=== PATIENT | male | born 1960 | race Caucasian/White ===

== ENCOUNTER 2020-04-10 08:40 | Day surgery (SDC) | payer BC ==
[2020-04-10 09:15] LABS: Absolute Lymphocytes (CBC) 2.1 K/uL (0.7-4.9); Basophils % 1.1 % (0-1.3); Hematocrit 47.1 % (39.6-49.0); Lymphocytes % 23.4 % (15.3-44.8); RBC Red Blood Cell Count 5.44 M/uL (4.33-5.43)
[2020-04-10 09:19] LABS: Protime INR 0.99
[2020-04-10] MEDS ORDERED: NA CHLORIDE 0.9% 1,000 ML ONE (09:22)
--- NOTE | 2020-04-10 09:27 | RAD REPORT ---
EXAM DESCRIPTION: RAD - Chest Single View - 04/10/2020 9:11 am CLINICAL HISTORY: CHEST PAIN Chest pain. COMPARISON: No comparisons FINDINGS: Portable technique limits examination quality. The lungs are mildly emphysematous but grossly clear. The heart is normal in size. No displaced fract ures. IMPRESSION: No acute intrathoracic process suspected.
[2020-04-10 09:42] LABS: Albumin 2.2 g/dL (3.4-5.0); Bilirubin Direct 0.2 mg/dL (0-0.2); Bilirubin Total 0.7 mg/dL (0.2-1.0); Magnesium 2.1 mg/dL (1.8-2.4); Potassium 4.1 mmol/L (3.5-5.1); Protein, Total 7.4 g/dL (6.4-8.2)
[2020-04-10 09:44] LABS: Troponin (Emerg Dept Use Only) 9.36 ng/mL (0.0-0.045)
[2020-04-10] MEDS ORDERED: NITROGLYCERIN 0.4 MG/TAB SL ONE (10:00)
--- NOTE | 2020-04-10 10:11 | ER ---
Nurse's Notes [facility] Name: Everton Steve Age: 59 yrs Sex: Male : 1960 Arrival Date: 04/10/2020 Time: 08:41 Bed 20 Private MD: Diagnosis: Non-ST elevation (NSTEMI) myocardial infarction Presentation: 04/10 08:51 Chief complaint: Intermittent substernal chest pain that radiates to left arm, SOB, and hb palpitations x 4 days. Reports HR 175 and pain this morning that was relieved by ASA and Nitro x 2. Coronavirus screen: At this time, the client does not indicate any symptoms associated with coronavirus-19. Ebola Screen: No symptoms or risks identified at this time. Initial Sepsis Screen: Does the patient meet any 2 criteria? No. Patient's initial sepsis screen is negative. Does the patient have a suspected source of infection? No. Patient's initial sepsis screen is negative. Risk Assessment: Do you want to hurt yourself or someone else? Patient reports no desire to harm self or others. Onset of symptoms was April 07, 2020. 08:51 Method Of Arrival: Ambulatory hb 08:51 Acuity: ANDRES 3 hb Historical: - Allergies: 08:57 No Known Allergies; hb - Home Meds: 08:57 Neurontin Oral [Active]; Novolog 100 unit/mL Sub-Q soln [Active]; unknown hypertension hb med [Active]; Aspirin Oral [Active]; nitroglycerin 0.4 mg SL subl [Active]; - PMHx: 08:57 Diabetes - IDDM; High Cholesterol; Hypertension; neuropathy; hb - PSHx: 08:57 Feet - Bilateral; Eyes - Bilateral; Tonsillectomy; hb - Immunization history:: Adult Immunizations up to date. - Social history:: Smoking status: Patient denies any tobacco usage or history of. Screenin:57 Abuse screen: Denies threats or abuse. Denies injuries from another. Nutritional hb screening: No deficits noted. Tuberculosis screening: No symptoms or risk factors identified. Fall Risk None identified. Assessment: 08:45 General: Appears in no apparent distress. uncomfortable, Behavior is calm, cooperative, jl7 appropriate for age. Pain: Complains of pain in mid-sternal area Pain radiates to left arm Pain currently is 5 out of 10 on a pain scale. at worst was 9 out of 10 on a pain scale. Pain began 2-3 days ago. Is intermittent. Neuro: Level of Consciousness is awake, alert, obeys commands, Oriented to person, place, time, situation. Cardiovascular: Reports chest pain, lightheadedness, shortness of breath, Heart tones S1 S2 present Patient's skin is warm and dry. Respiratory: Airway is patent Respiratory effort is even, unlabored, Respiratory pattern is regular, symmetrical, Breath sounds are clear bilaterally. GI: No signs and/or symptoms were reported involving the gastrointestinal system. : No signs and/or symptoms were reported regarding the genitourinary system. Derm: Skin is pink, warm \T\ dry. 10:00 Reassessment: Patient appears in no apparent distress at this time. No changes from jl7 previously documented assessment. Patient and/or family updated on plan of care and expected duration. Pain level reassessed. Patient is alert, oriented x 3, equal unlabored respirations, skin warm/dry/pink. Vital Signs: 08:51 BP 115 / 86; Pulse 76; Resp 16; Temp 97.1; Pulse Ox 98% on R/A; Weight 78.93 kg; Height hb 5 ft. 9 in. (175.26 cm); Pain 5/10; 09:19 BP 113 / 82; Pulse 78; Resp 15 S; Pulse Ox 100% on R/A; jl7 09:45 BP 130 / 69; Pulse 77; Resp 15; Pulse Ox 98% ; jl7 10:00 BP 101 / 70; Pulse 79; Resp 15; Pulse Ox 95% on R/A; jl7 10:15 BP 107 / 85; Pulse 91; Resp 16; Pulse Ox 96% ; jl7 08:51 Body Mass Index 25.70 (78.93 kg, 175.26 cm) hb ED Course: 08:41 Patient arrived in ED. ds1 08:42 Gordy Nunez PA is PHCP. cp 08:42 Nate Robertson MD is Attending Physician. cp 08:54 Triage completed. hb 08:57 Arm band placed on. hb 08:57 Patient has correct armband on for positive identification. Bed in low position. Call light in reach. monitor and storage bin tender on. Pulse ox on. NIBP on. 08:57 Patient maintains SpO2 saturation greater than 95% on room air. hb 09:00 Initial lab(s) drawn, by me, sent to lab. COVID-19 swab sent to lab. Inserted saline jl7 lock: 20 gauge in right wrist, using aseptic technique. Blood collected. 09:09 Ema Carbone, RN is Primary Nurse. jl7 09:10 XRAY Chest (1 view) In Process Unspecified. EDMS 09:46 Notified ED physician of a critical lab result(s). TROP 9.36. hb 10:10 Graham Robles is Hospitalizing Provider. cp 10:31 No provider procedures requiring assistance completed. Patient admitted, IV remains in jl7 place. intact, No redness/swelling at site. Administered Medications: 09:15 Drug: NS 0.9% 1000 ml Route: IV; Rate: 1000 ml/hr; Site: right wrist; jl7 10:30 Follow up: IV Status: Infusion continued upon admission jl7 10:02 Drug: Nitroglycerin 0.4 mg Route: Sublingual; jl7 10:30 Follow up: Response: No adverse reaction jl7 10:10 Drug: Heparin (ND-Bolus No thrombolytic) - HEParin 60 units/kg {Co-Signature: ll2 jl7 (Shaila Parks RN).} Route: IVP; Site: right wrist; 10:30 Follow up: Response: No adverse reaction jl7 10:12 Drug: Heparin (ND Drip) 12 units/kg/hr - (HEParin 97051 units, D5W 500 ml) jl7 {Co-Signature: ll2 (Shaila Parks RN).} Route: IV; Rate: calculated rate; Site: left forearm; 10:30 Follow up: Response: No adverse reaction; IV Status: Infusion continued upon admission jl7 10:30 Not Given (Patient Refused): morphine 2 mg IVP once; (PAIN>8) RASS on ADMN: Combtv4, jl7 Very Agttd3, Agttd2, Rstlss1, AlertClm0, Drwsy-1, LtSdtn-2, ModSdtn-3, DpSdtn-4, UnArsble-5 x2 Outcome: 10:10 Decision to Hospitalize by Provider. cp 10:31 Admitted to [facility] accompanied by nurse, via stretcher, on monitor, with chart, Other jl7 Report given to REY Dumont 10:31 Condition: stable 10:31 Discharge instructions given to patient, Instructed on the need for admit, Demonstrated understanding of instructions. 10:31 Patient left the ED. jl7 Signatures: Dispatcher [employer] EDMae Holliday ds1 Gordy Nunez PA PA cp Baxter, Heather, REY RN Ema Carpenter RN RN jl7 Shaila Parks RN ll2
--- NOTE | 2020-04-10 10:11 | EDPHYS ---
Physician Documentation [facility] Name: Everton Steve Age: 59 yrs Sex: Male : 1960 Arrival Date: 04/10/2020 Time: 08:41 Bed 20 Private MD: ED Physician Nate Robertson HPI: 04/10 09:00 This 59 yrs old Male presents to ER via Ambulatory with complaints of Chest cp Pain. 09:00 The patient or guardian reports chest pain that is located primarily in the substernal cp area. 09:00 Onset: 3 day(s) ago, and became worse last night, improved today. The pain radiates to cp the left arm. 09:00 The chest pain is described as aching, constant. Duration: The patient or guardian cp reports a single episode, that is still ongoing, but improving. Modifying factors: The symptoms are alleviated by ASA, 325mg X2. NTG, X1. Severity of pain: in the emergency department the pain is a 5 / 10. Historical: - Allergies: 08:57 No Known Allergies; hb - Home Meds: 08:57 Neurontin Oral [Active]; Novolog 100 unit/mL Sub-Q soln [Active]; unknown hypertension hb med [Active]; Aspirin Oral [Active]; nitroglycerin 0.4 mg SL subl [Active]; - PMHx: 08:57 Diabetes - IDDM; High Cholesterol; Hypertension; neuropathy; hb - PSHx: 08:57 Feet - Bilateral; Eyes - Bilateral; Tonsillectomy; hb - Immunization history:: Adult Immunizations up to date. - Social history:: Smoking status: Patient denies any tobacco usage or history of. ROS: 09:00 Constitutional: Negative for body aches, chills, fever, poor PO intake. cp 09:00 Eyes: Negative for injury, pain, redness, and discharge. cp 09:00 ENT: Negative for ear pain, sore throat, difficulty swallowing, difficulty handling secretions. 09:00 Cardiovascular: Positive for chest pain, palpitations, Negative for edema. 09:00 Respiratory: Negative for cough, shortness of breath, wheezing. 09:00 Abdomen/GI: Negative for abdominal pain, nausea, vomiting, and diarrhea. 09:00 Back: Negative for radiated pain. cp 09:00 Skin: Negative for rash. 09:00 Neuro: Positive for headache, Negative for altered mental status, numbness, syncope, weakness. 09:00 All other systems are negative. Exam: 09:00 ECG was reviewed by the Attending Physician. cp 09:00 Constitutional: The patient appears in no acute distress, alert, awake, cp non-diaphoretic, non-toxic, well developed, well nourished. 09:00 Head/Face: Normocephalic, atraumatic. cp 09:00 Eyes: Periorbital structures: appear normal, Conjunctiva: normal, no exudate, no injection, Sclera: no appreciated abnormality, Lids and lashes: appear normal, bilaterally. 09:00 ENT: External ear(s): are unremarkable, Nose: is normal, Mouth: Lips: moist, Oral mucosa: moist, Posterior pharynx: Airway: no evidence of obstruction, patent. 09:00 Neck: ROM/movement: is normal, is supple, without pain, no range of motions limitations. 09:00 Chest/axilla: Inspection: normal, Palpation: is normal, no crepitus, no tenderness. 09:00 Cardiovascular: Rate: normal, Rhythm: regular, Pulses: Pulses are 2+ in right radial artery and left radial artery. Edema: is not appreciated, JVD: is not appreciated. 09:00 Respiratory: the patient does not display signs of respiratory distress, Respirations: normal, no use of accessory muscles, no retractions, labored breathing, is not present, Breath sounds: are clear throughout, no decreased breath sounds, no stridor, no wheezing. 09:00 Abdomen/GI: Inspection: abdomen appears normal, Palpation: abdomen is soft and non-tender, in all quadrants. 09:00 Back: pain, is absent, ROM is normal. Vital Signs: 08:51 BP 115 / 86; Pulse 76; Resp 16; Temp 97.1; Pulse Ox 98% on R/A; Weight 78.93 kg; Height hb 5 ft. 9 in. (175.26 cm); Pain 5/10; 09:19 BP 113 / 82; Pulse 78; Resp 15 S; Pulse Ox 100% on R/A; jl7 09:45 BP 130 / 69; Pulse 77; Resp 15; Pulse Ox 98% ; jl7 10:00 BP 101 / 70; Pulse 79; Resp 15; Pulse Ox 95% on R/A; jl7 10:15 BP 107 / 85; Pulse 91; Resp 16; Pulse Ox 96% ; jl7 08:51 Body Mass Index 25.70 (78.93 kg, 175.26 cm) hb MDM: 08:53 Patient medically screened. cp 09:00 Differential diagnosis: abnormal EKG, acute myocardial infarction, pneumonia, cp pneumothorax, pulmonary embolus, stable angina, thoracic aortic disection, unstable angina. 10:00 Data reviewed: vital signs, nurses notes, lab test result(s), EKG, radiologic studies, cp plain films. 10:00 Test interpretation: by ED physician or midlevel provider: ECG. cp 10:05 The patient was not given aspirin in the Emergency Department. Patient reports taking cp aspirin within the past 24 hours. Physician consultation: Emre Monahan MD was contacted at 10:06, regarding consult, patient's condition, will take patient to cathode washer. 10:10 Physician consultation: Graham Robles was called at 10:10, was contacted at 10:10, cp regarding admission, to the telemetry unit. patient's condition, and will see patient in ED, shortly. 04/10 08:56 Order name: Basic Metabolic Panel; Complete Time: 09:48 cp 04/10 08:56 Order name: CBC with Diff; Complete Time: 09:34 cp 04/10 08:56 Order name: LFT's; Complete Time: 09:48 cp 04/10 08:56 Order name: Magnesium; Complete Time: 09:48 cp 04/10 08:56 Order name: NT PRO-BNP; Complete Time: 09:48 cp 04/10 08:56 Order name: PT-INR; Complete Time: 09:34 cp 04/10 08:56 Order name: Troponin (emerg Dept Use Only); Complete Time: 09:48 cp 04/10 08:56 Order name: XRAY Chest (1 view); Complete Time: 09:34 cp 04/10 10:24 Order name: SARS-COV-2 RT PCR EDMS 04/10 08:56 Order name: EKG; Complete Time: 08:56 cp 04/10 08:56 Order name: Cardiac monitoring; Complete Time: 08:58 cp 04/10 08:56 Order name: EKG - Nurse/Tech; Complete Time: 08:58 cp 09/08 08:56 Order name: IV Saline Lock; Complete Time: 09:23 cp 0908 08:56 Order name: Labs collected and sent; Complete Time: 09:23 cp 08 08:56 Order name: O2 Per Protocol; Complete Time: :58 cp 04/10 08:56 Order name: O2 Sat Monitoring; Complete Time: 08:58 EC:00 Rate is 75 beats/min. Rhythm is regular. MD interval is normal. QRS interval is normal. cp QT interval is normal. T waves are Inverted in leads III, aVR. Interpreted by me. Reviewed by me. Administered Medications: 09:15 Drug: NS 0.9% 1000 ml Route: IV; Rate: 1000 ml/hr; Site: right wrist; jl7 10:30 Follow up: IV Status: Infusion continued upon admission jl7 10:02 Drug: Nitroglycerin 0.4 mg Route: Sublingual; jl7 10:30 Follow up: Response: No adverse reaction jl7 10:10 Drug: Heparin (OH-Bolus No thrombolytic) - HEParin 60 units/kg {Co-Signature: klaudia rg7 (Shaila Parks RN).} Route: IVP; Site: right wrist; 10:30 Follow up: Response: No adverse reaction jl7 10:12 Drug: Heparin (OH Drip) 12 units/kg/hr - (HEParin 09067 units, D5W 500 ml) jl7 {Co-Signature: ll2 (Shaila Parks RN).} Route: IV; Rate: calculated rate; Site: left forearm; 10:30 Follow up: Response: No adverse reaction; IV Status: Infusion continued upon admission jl7 10:30 Not Given (Patient Refused): morphine 2 mg IVP once; (PAIN>8) RASS on ADMN: Combtv4, jl7 Very Agttd3, Agttd2, Rstlss1, AlertClm0, Drwsy-1, LtSdtn-2, ModSdtn-3, DpSdtn-4, UnArsble-5 x2 Disposition: 10:35 Critical Care:. 15:04 Co-signature as Attending Physician, Nate Robertson MD. rn Disposition: 04/10/20 10:10 Hospitalization ordered by Graham Robles for Inpatient Admission. Preliminary diagnosis is Non-ST elevation (NSTEMI) myocardial infarction. - Bed requested for Telemetry/MedSurg (Inpatient). - Status is Inpatient Admission. jl7 - Condition is Stable. - Problem is new. - Symptoms have improved. Critical care time excluding procedures: 10:35 Critical care time: Bedside Care: 10 minutes, Consultation: 20 minutes. Total time: 30 cp minutes Signatures: Dispatcher [employer] EDMI Nate Robertson MD MD rn Page, Corey, PA PA cp Sandra Anderson RN RN Ema Carbone RN RN jl7 Shaila Parks RN ll2 Corrections: (The following items were deleted from the chart) 09:58 09:57 This 59 yrs old Male presents to ER via Ambulatory with complaints of cp Chest Pain. cp 10:03 09:05 Constitutional: Negative for body aches, chills, fever, poor PO intake, cp cp 10:24 08:57 CORONAVIRUS+MR.LAB.BRZ ordered. [facility] EDMI 10:31 10:10 Hospitalization Ordered by Graham Robles for Inpatient Admission. Preliminary jl7 diagnosis is Non-ST elevation (NSTEMI) myocardial infarction. Bed requested for Telemetry/MedSurg (Inpatient). Status is Inpatient Admission. Condition is Stable. Problem is new. Symptoms have improved. cp 16:39 09:00 The patient or guardian reports chest pain that is located primarily in the cp anterior chest wall, left, cp
[2020-04-10] MEDS ORDERED: HEPARIN 5000 UNIT/ML 1 ML VIAL ONE (10:14)
[2020-04-10] MEDS ORDERED: HEPARIN/D5W 0 UNIT/0 ML BAG IV ONE (10:14)
[2020-04-10] MEDS ORDERED: NITROGLYCERIN 100 MCG/ML SYR (for cath lab use only) IV ONE (10:31)
[2020-04-10] MEDS ORDERED: FENTANYL CITR 100 MCG/2 ML ONE (10:31)
[2020-04-10] MEDS ORDERED: NA CHLORIDE 0.9% 0 ML ONE (10:31)
[2020-04-10] MEDS ORDERED: NA CHLORIDE 0.9% 50 ML ONE (10:31)
[2020-04-10] MEDS ORDERED: MIDAZOLAM HCL 2 MG/2 ML INJ ONE ×2 (10:31→11:12)
[2020-04-10] MEDS ORDERED: ATROPINE SULF 1 MG/10 ML SYR IV ONE (10:31)
[2020-04-10] MEDS ORDERED: LIDOCAINE 1% 20 ML MDV ONE (10:32)
[2020-04-10] MEDS ORDERED: HEPA 1000U/500MLS 1,000 UNIT/500 ML BAG IV ONE (10:32)
[2020-04-10] MEDS ORDERED: HEPARIN/D5W 25,000 UNIT/500 ML BAG IV ONE (10:32)
[2020-04-10 12:38] VITALS: TEMP 97
[2020-04-10 14:03] VITALS: BP 107/67; O2SAT 98
--- NOTE | 2020-04-10 18:52 | OP ---
Date of Procedure: 04/10/2020 Surgeon: Emre Monahan MD Plastic Outfitter: Liset Barboza. Procedures: Left heart catheterization with selective coronary arteriogram. Indications: [id number] myocardial infarction. Description Of Procedure: Mr. Steve is a 59-year-old, was brought from the emergency room direct ly to the research laboratory specialist emergently because of chest pain, positive troponin, abnormal EKG. He was prepped and draped in the routine sterile fashion, given Versed for sedation. Using the Seldinger technique , we put a 6-Ethiopian sheath in the right common femoral artery after 10 cc of Xylocaine. Kahlil cath eter left and right were used to cannulate the left main and the right main respectively. The patien t was found to have severe coronary artery disease. He had a subtotaled LAD from the ostium. He had a 2 sequential 90% lesion in the obtuse marginal. The patient was right dominant. His RCA showed a n 80% proximal stenosis and 90% distal stenosis with collaterals from the PDA and the posterolateral branch to the LAD. The LAD appeared to be a small vessel, however, it is hard to applications engineer the size cons idering the vessel is completely occluded. There were no complications. The patient tolerated the p rocedure well. Blood Loss: 5 mL. Anesthesia: Total conscious sedation was 30 minutes. Final Diagnosis: Severe coronary artery disease. Plan: For urgent coronary artery bypass surgery, the patient will be sent to Dr. Kacy Mayfield at [facility] for surgery hopefully today or tomorrow. CD will be sent with the patient. StarClose was used to close the right groin. Angiography there was normal. NB/MODL Voice ID: [id number] Report ID: [id number]
--- NOTE | 2020-04-10 19:10 | CON ---
Date of Consultation: 04/10/2020 Reason For Consultation: The patient was admitted via emergency room for acute dmy-ZN-ngfcawqom myoc ardial infarction. The patient was seen on 04/10/2020 after he was taken emergently to the wood preserving plant laborer. History Of Present Illness: Mr. Steve is a 59-year-old white male with history of hypertension, dyslipidemia, tobacco use, family history of heart disease and diabetes, who came in with approximate ly a week worth of chest pain, that had abated the morning of admission. He complained of dyspnea on exertion. He complained of nausea, diaphoresis. No PND, orthopnea, pedal edema, palpitation, or sy ncope. He denied any fever, chills, or cough. Past Medical History: As stated above. Allergies: NONE. Review of Systems: Negative. Social History: Positive for tobacco use. Family History: Positive for heart disease. Medications: At home were listed by admitting physician. Physical Examination: Vital Signs: Stable. Afebrile. HEENT: Negative. Neck: Supple with no bruit. Chest: Clear to auscultation and percussion. Cardiac: Regular rhythm and rate. No murmurs, gallops, or rubs. Abdomen: Benign. Extremities: No clubbing, cyanosis, or edema. Diagnostic Data: EKG showed nonspecific changes. Chest x-ray is negative. Troponin was positive. Impression And Plan: Xpe-DF-nrfgpazie myocardial infarction. The patient will be taken to the wood preserving plant laborer emergently for a heart catheterization to define his coronary anatomy. The patient understands t he risk and the benefits of the procedure and he agrees to proceed. His other problems including hyp ertension, dyslipidemia, diabetes, family history are stable. Further decisions will be made after t he catheterization. CASE/LATA Voice ID: [id number] Report ID: [id number]
--- NOTE | 2020-04-10 20:00 | EKG ---
Test Date: 2020-04-10 Test Time: 08:48:42 Bill[place]er: BRUCE MEASUREMENT RESULTS: Intervals: Rate: 75 NJ: 150 QRSD: 88 QT: 386 QTc: 431 [place]: P: 19 NJ: 150 QRS: -31 T: 29 INTERPRETIVE STATEMENTS: Normal sinus rhythm Left axis deviation Septal infarct, age undetermined Inferior infarct, age undetermined Abnormal ECG No previous ECG available for comparison Electronically Signed On 04-10-20 19:59:17 CDT by Emre Monahan
== END 2020-04-10 14:05 | disposition home or self-care (01) ==
LOC: ER 08:40 → CCL 12:27
DX: I21.4 Non-ST elevation (NSTEMI) myocardial infarction (principal); I25.10 Atherosclerotic heart disease of native coronary artery without angina pectoris; I10 Essential (primary) hypertension; E78.5 Hyperlipidemia, unspecified; Z72.0 Tobacco use; E11.40 Type 2 diabetes mellitus with diabetic neuropathy, unspecified; Z20.828 Contact with and (suspected) exposure to other viral communicable diseases; Z88.8 Allergy status to other drugs, medicaments and biological substances; Z79.4 Long term (current) use of insulin; Z82.49 Family history of ischemic heart disease and other diseases of the circulatory system; Z83.3 Family history of diabetes mellitus
CPT/HCPCS: 93005; 85025; 80048; 36415; 83735; 85610; 82947; 80076; 84484; 83880; 71045; 93454; U0003; C1893; J1644 ×3; J2250 ×2; J3010; J7030; 96361; 96365; 99285; J0583; J7040